=== PATIENT | male | born 1975 | race Caucasian/White ===

== ENCOUNTER → 2016-10-22 15:01 | Outpatient (CLI) | payer MEDICAID ==
[2016-10-22 18:44] LABS: BASOPHILS 2.1 % (0-2); EOSINOPHILS 12.3 % (0-7); HEMATOCRIT 42.8 % (42.0-54.0); HEMOGLOBIN 13.8 g/dL (13.5-17.5); IMMATURE GRANULOCYTES 0.6 % (0-5); LYMPHOCYTES 35.9 % (15-50); MCH 31.6 pg (26.0-34.0); MCHC 32.2 g/dL (31.0-37.0); MCV 97.9 fL (80.0-100.0); MONOCYTES 1.5 % (2-11); NEUTROPHILS 47.6 % (40-80); PLATELET COUNT 214 10x3/uL (130-400); RBC 4.37 10x6/uL (4.20-6.10); RDW 13.5 % (11.5-14.5); WBC 3.3 10x3/uL (4.8-10.8)
== END | disposition home or self-care (01) ==
LOC: D.LABREF 15:01
PROVIDERS: Family Medicine
DX: M86.9 Osteomyelitis, unspecified (principal)